=== PATIENT | female | born 2000 | race Asian ===

== ENCOUNTER 2023-12-19 00:37 | Emergency (ER) | payer OTHER ==
[2023-12-19 00:56] VITALS: RESP 16; BMI 20.5
[2023-12-19] MEDS ORDERED: ACETAMINOPHEN INJECTION 100 ML IVPB ONE (01:35)
[2023-12-19] MEDS ORDERED: ONDANSETRON 4 MG/2 ML VIAL ONE (01:35)
[2023-12-19] MEDS: SODIUM CHLORIDE 1,000 ML IV ONE ×2 (01:36→03:38)
[2023-12-19] MEDS: ACETAMINOPHEN 1000 MG/100 ML BAG IVPB ONE (01:36)
[2023-12-19] MEDS: ONDANSETRON 4 MG/2 ML VIAL IVPB ONE ×2 (01:37→03:39)
[2023-12-19 02:23] LABS: HEMOGLOBIN 13.1 GM/dL (10.7-15.3); MCH 32.3 pg (25.7-33.7); MCHC 33.7 g/dl (32.0-36.0); MEAN PLT VOLUME 8.7 fl (7.5-11.1); PLATELET COUNT 293 10^3/uL (134-434); RBC 4.06 M/mm3 (3.60-5.2); RDW 13.2 % (11.6-15.6); WHITE BLOOD COUNT 9.7 K/mm3 (4.0-10.0)
[2023-12-19 02:24] LABS: URINE APPEARANCE CLEAR; URINE BILIRUBIN NEGATIVE (NEGATIVE); URINE COLOR YELLOW; URINE GLUCOSE (UA) NEGATIVE (NEGATIVE); URINE KETONE NEGATIVE (NEGATIVE); URINE LEUK ESTERASE NEGATIVE (NEGATIVE); URINE NITRITE NEGATIVE (NEGATIVE); URINE PROTEIN NEGATIVE (NEGATIVE); URINE UROBILINOGEN 0.2 mg/dL (0.2-1.0)
[2023-12-19 02:43] LABS: POTASSIUM 3.8 mmol/L (3.5-5.1)
[2023-12-19 02:45] LABS: ALBUMIN 4.2 g/dl (3.4-5.0); BLOOD UREA NITROGEN 13.6 mg/dL (7-18); CALCIUM 9.1 mg/dL (8.5-10.1)
[2023-12-19 02:49] LABS: CREATININE 0.8 mg/dL (0.55-1.3)
[2023-12-19 02:50] LABS: BILIRUBIN,TOTAL 0.5 mg/dL (0.2-1); TOT PROT 7.7 g/dl (6.4-8.2)
[2023-12-19 03:39] VITALS: BP 92/44; PULSE 106; TEMP 99
== END 2023-12-19 03:47 | disposition home or self-care (01) ==
LOC: FER 00:37
PROC: 3E033GC Introduction of Other Therapeutic Substance into Peripheral Vein, Percutaneous Approach (ICD-10-PCS; principal; 2023-12-19)
PROC: 3E033NZ Introduction of Analgesics, Hypnotics, Sedatives into Peripheral Vein, Percutaneous Approach (ICD-10-PCS; 2023-12-19)
DX: R11.2 Nausea with vomiting, unspecified (principal); R50.9 Fever, unspecified
CPT/HCPCS: 36415; 80053; 81003; 85027; 87077; 87086; 99284-25; J0131